=== PATIENT | female | born 1965 | race Caucasian/White ===

== ENCOUNTER 2023-04-18 19:24 | Emergency (ER) | payer OTHER ==
[2023-04-18 19:36] VITALS: RESP 16; BMI 24.8
[2023-04-18] MEDS ORDERED: DEXAMETHASONE SOD PHOSPHATE 10 MG/1 ML VIAL IM ONE (20:00)
[2023-04-18 20:03] VITALS: BP 147/98; PULSE 88; TEMP 98.5
[2023-04-18] MEDS ORDERED: DEXAMETHASONE SOD PHOSPHATE/PF 10 MG/ML SDV ONE (20:04)
== END 2023-04-18 20:07 | disposition home or self-care (01) ==
LOC: FER 19:24
PROC: 3E023GC Introduction of Other Therapeutic Substance into Muscle, Percutaneous Approach (ICD-10-PCS; principal; 2023-04-18)
DX: L23.7 Allergic contact dermatitis due to plants, except food (principal)
CPT/HCPCS: 99284-25; J1100